=== PATIENT | male | born 1975 | race Caucasian/White ===

== ENCOUNTER 2017-11-25 11:47 | Day surgery (SDC) | payer BC, OTHER ==
[~2017-11-25 11:47] MED LIST: CEFAZOLIN 2 GM/D5W RTU 2 GM/50 ML RTUPB IV ONE; CEFAZOLIN 2 GM/D5W RTU 2 GM/50 ML RTUPB IV PRN; LACTATED RINGERS 1000 ML IV PRN; LIDOCAINE 0.5% INJ-PF (5 MG/ML) 50 ML SDV SUBCUT PRN; LIDOCAINE 1% INJ-PF (10 MG/ML) 30 ML SDV ONE
[2017-11-25] MEDS ORDERED: FENTANYL CITRATE INJ/PF 100 MCG/2 ML AMPUL ONE (12:08)
[2017-11-25] MEDS ORDERED: MIDAZOLAM 2 MG/2 ML INJ ONE (12:08)
[2017-11-25] MEDS ORDERED: PROPOFOL INJ 200 MG/20 ML VIAL IV ONE (12:09)
[2017-11-25] MEDS ORDERED: ONDANSETRON HCL INJ/PF 4 MG/2 ML SDV ONE (12:09)
[2017-11-25] MEDS ORDERED: PROMETHAZINE HCL INJ 25 MG/1 ML VIAL IV PRN ×2 (12:37)
[2017-11-25] MEDS ORDERED: MEPERIDINE HCL/PF INJ 25 MG/1 ML DISP.SYRIN IV PRN (12:37)
[2017-11-25] MEDS ORDERED: MORPHINE SULFATE 10 MG/ML INJ IV PRN (12:37)
[2017-11-25] MEDS ORDERED: ONDANSETRON HCL INJ/PF 4 MG/2 ML SDV IV PRN ×2 (12:37→13:29)
[2017-11-25] MEDS ORDERED: FENTANYL CITRATE INJ/PF 100 MCG/2 ML AMPUL IV PRN ×3 (12:37)
[2017-11-25] MEDS ORDERED: OXYCODONE-ACETAMINOPHEN 5-325 MG TABLET PO PRN ×3 (12:37→13:29)
[2017-11-25] MEDS ORDERED: DIPHENHYDRAMINE HCL 50 MG/ML VIAL IV PRN (12:37)
--- NOTE | 2017-11-25 13:29 | Operative Report ---
Operative Report DATE OF SURGERY: 11/25/17 PREOPERATIVE DIAGNOSIS: PIP joint contracture right small finger POSTOPERATIVE DIAGNOSIS: Same OPERATION: application of dynamic external fixator right small finger (Digit Widget) SURGEON: SUE ABDALLA ANESTHESIA: LMAC COMPLICATIONS: None ESTIMATED BLOOD LOSS: Minimal PROCEDURE: Indication for above procedure: 42-year-old male who sustained an injury at work resulting in a worsening PIP joint contracture of the right small finger. We attempted occupational therapy and conservative measures however patient failed to see significant improvement. At that point we discussed treatment options including continued observation versus operative intervention. After discussing risks and benefits of both joint decision was made to proceed with operative intervention which included dynamic external fixator. Postoperative expectations, rehabilitation and outcomes were explained patient verbalized understanding consented for the procedure. Procedure In Detail: Patient was seen and evaluated in the preoperative holding area. The RIGHT upper extremity was initialized and marked. Patient received 2g of Ancef IV for bacterial prophylaxis. Patient was taken back to the operative room where transferred to the operative table. Once they were adequately anesthetized a nonsterile tourniquet was placed on the upper extremity. A surgical team debriefing was performed ensuring all instrumentation was available, the surgical procedure was discussed with possible concerns reviewed. A digital block was performed utilizing 10 mL of 1% lidocaine without epinephrine. The upper extremity was prepped with chlorhexidine and alcohol and draped in a sterile fashion. A timeout was done identifying correct patient, procedure and extremity everyone in attendance agree with this and verbalized no concerns. The extremity was elevated the tourniquet was inflated to 250 mmHg. The digit widget external guide was placed on the finger C-arm fluoroscopy was obtained confirming appropriate placement. This area was then marked and the proximal pin guide was placed within the aiming apparatus. C-arm fluoroscopy was obtained confirming appropriate placement just past the far cortex. Special attention maintaining coplanar placement of the pins on both AP and lateral projection. The distal drill guide was then placed drilling through both cortices. The pin was then placed through the apparatus just past the far cortex. The previous drill pin was then removed and the proximal pins placed. C-arm fluoroscopy was obtained confirming appropriate placement on AP and lateral projection. The pins were then cut at the shoulder and the aiming device removed. The pin block was then placed approximately 5 mm above the dorsal skin and the clamp tightened. The pin sites were dressed with Xeroform and the tourniquet deflated. Patient had good peripheral perfusion. At the completion of the sterile portion of the case the remaining apparatus was placed including the hand wrap and the external torque device and the light rubber bands placed. Sponge counts, instrument counts, needle counts counts were correct. Patient was then awoken from anesthesia. Transferred from the operating room table to the operating room stretcher. There was no intraoperative complications patient tolerated procedure well stable to PACU. Postoperative plan: Patient will follow-up as scheduled for wound check. Patient will be set up for occupational therapy to begin range of motion exercises as per protocol.
--- NOTE | 2017-11-25 13:33 | Discharge Summary ---
Discharge Summary (SDC) - Discharge Final Diagnosis: Right small finger PIP joint flexion contracture Date of Surgery: 11/25/17 Discharge Date: 11/25/17 Condition: Good Treatment or Instructions: Schedule Follow Up w/ Dr. Mark Madrid @ [facility] to be seen in 10-14 days or as scheduled [place]: [place]: [place]: Set up occupational therapy appointment within the next 3-5 days. Ice and elevate May begin finger range of motion attempting to make full fist. Stool softener of choice when on pain medication. Clean pin sites w/ chlorhexidine soap Prescriptions: Oxycodone HCl/Acetaminophen [Percocet 5-325 mg Tablet] 1 tab PO Q6 #25 tab Discharge Diet: As Tolerated Respiratory Treatments at Home: Deep Breathing/Coughing Report the Following to Your Physician Immediately: Fever over 101 Degrees, Unusual Bleeding, Redness, Swelling, Warmth, Increased Soreness
--- NOTE | 2017-11-25 13:41 | RADIOLOGY REPORT (SQ) ---
EXAM DESCRIPTION: FINGER RIGHT; NO CHG FLUORO COMPLETED DATE/TIME: 11/25/2017 1:33 pm REASON FOR STUDY: RT FINGER EXTERNAL FIX M24.549 CONTRACTURE, UNSPECIFIED HAND COMPARISON: None. FLUOROSCOPY TIME: 0.24 minutes Spot images saved to PACS. TECHNIQUE: Intra-operative images acquired during surgical procedure to evaluate progress. NUMBER OF IMAGES: 2 LIMITATIONS: None. FINDINGS: Fluoroscopy was provided for intraoperative procedure. Please refer to the operative repo rt for further discussion. IMPRESSION: IMAGE(S) OBTAINED DURING PROCEDURE. COMMENT: Quality ID [id number]: Final reports for procedures using fluoroscopy that document radiation exp osure indices, or exposure time and number of fluorographic images (if radiation exposure indices are not available) Please consult full operative report of the attending physician for description of the procedure. TECHNICAL DOCUMENTATION: JOB ID: [id number] [employer]- All Rights Reserved Reading location - IP/workstation name: [email or web address]
--- NOTE | 2017-11-25 13:41 | RADIOLOGY REPORT (SQ) ---
EXAM DESCRIPTION: FINGER RIGHT; NO CHG FLUORO COMPLETED DATE/TIME: 11/25/2017 1:33 pm REASON FOR STUDY: RT FINGER EXTERNAL FIX M24.549 CONTRACTURE, UNSPECIFIED HAND COMPARISON: None. FLUOROSCOPY TIME: 0.24 minutes Spot images saved to PACS. TECHNIQUE: Intra-operative images acquired during surgical procedure to evaluate progress. NUMBER OF IMAGES: 2 LIMITATIONS: None. FINDINGS: Fluoroscopy was provided for intraoperative procedure. Please refer to the operative repo rt for further discussion. IMPRESSION: IMAGE(S) OBTAINED DURING PROCEDURE. COMMENT: Quality ID [id number]: Final reports for procedures using fluoroscopy that document radiation exp osure indices, or exposure time and number of fluorographic images (if radiation exposure indices are not available) Please consult full operative report of the attending physician for description of the procedure. TECHNICAL DOCUMENTATION: JOB ID: [id number] [employer]- All Rights Reserved Reading location - IP/workstation name: [email or web address]
[2017-11-25] MEDS ORDERED: OXYCODONE-ACETAMINOPHEN 5-325 MG TABLET ONE (14:18)
[2017-11-25 15:25] VITALS: BP 122/87
== END 2017-11-25 15:20 | disposition home or self-care (01) ==
LOC: OROUT 11:47
PROVIDERS: ATTEND Orthopaedic Surgery
DX: M24.541 Contracture, right hand (principal); M79.644 Pain in right finger(s); Z79.891 Long term (current) use of opiate analgesic; Z79.1 Long term (current) use of non-steroidal anti-inflammatories (NSAID)
CPT/HCPCS: 73140; 20690; J2250; J3010; J3490; J2405; J2704; J0690

== ENCOUNTER 2019-05-07 15:10 | Emergency (ER) | payer OTHER ==
[2019-05-07] MEDS ORDERED: IBUPROFEN 800 MG TABLET PO ONE (15:29)
[2019-05-07] MEDS ORDERED: ACETAMINOPHEN 325 MG TABLET PO ONE (15:30)
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
[2019-05-07 16:29] VITALS: BP 108/83
== END 2019-05-07 16:32 | disposition home or self-care (01) ==
LOC: ER 15:10
DX: S16.1XXA Strain of muscle, fascia and tendon at neck level, initial encounter (principal); M54.9 Dorsalgia, unspecified; M54.2 Cervicalgia; V49.50XA Passenger injured in collision with unspecified motor vehicles in traffic accident, initial encounter; M41.9 Scoliosis, unspecified
CPT/HCPCS: 72070; 72125; 99284